=== PATIENT | male | born 1985 | race Caucasian/White ===

== ENCOUNTER → 2016-04-02 | Outpatient (CLI) | payer BC, OTHER ==
--- NOTE | 2016-04-02 21:08 | MR ---
EXAMINATION TYPE: MR lumbar spine wo con DATE OF EXAM: 04/02/2016 6:35 PM COMPARISON: NONE HISTORY: LBP, erickson leg numbness, no trauma/surgery TECHNIQUE: Multiplanar, multisequence images of the lumbar spine were acquired. L1-L2: Normal disc appearance without desiccation. No herniation, protrusion or disc bulging. No ca nal stenosis is present. Foramina are patent bilaterally. L2-L3: Normal disc appearance without desiccation. No herniation, protrusion or disc bulging. No ca nal stenosis is present. Foramina are patent bilaterally. L3-L4: Normal disc appearance without desiccation. No herniation, protrusion or disc bulging. No ca nal stenosis is present. Foramina are patent bilaterally. L4-L5: Normal disc appearance without desiccation. No herniation, protrusion or disc bulging. No ca nal stenosis is present. Foramina are patent bilaterally. L5-S1: There is loss of disc height and signal, circumferential extension endplate disc complex cause s bilateral foraminal encroachment. Endplate discogenic marrow signal change is noted. No significant central stenosis. Broad-based posterior disc herniation may contact the proximal S1 nerve roots. Lumbar segments are intact and show preserved height and alignment.. No paraspinal masses are identi fied. Conus medullaris has a normal appearance. IMPRESSION: Disc herniation L5-S1
== END | disposition home or self-care (01) ==
LOC: RADMRIMAIN 17:47
PROVIDERS: ATTEND Internal Medicine
DX: M51.27 Other intervertebral disc displacement, lumbosacral region (principal)
CPT/HCPCS: 72148